=== PATIENT | female | born 1960 | race Two or more races ===

== ENCOUNTER → 2020-01-11 | Outpatient (CLI) | payer OTHER ==
--- NOTE | 2020-01-11 15:13 | Diagnostic Imaging Report ---
TECHNIQUE: 2 views of the thoracic spine, 5 views of the lumbar spine and 2 views of the sacrum HISTORY: ^[id number] ^[id number] ^THORACIC SPINE PAIN. COMPARISON: None. IMPRESSION: Straightening of the lumbar spine. No acute displaced fracture or dislocation. Severe L5-S1 disc space narrowing with mild osteophytosis. Probable associated facet arthropathy. Vascular calcifications. Signed by: Kash Yen MD on 01/11/2020 3:10 PM
== END ==
LOC: MAMMO 13:14
PROVIDERS: ATTEND Internal Medicine
DX: Z12.31 Encounter for screening mammogram for malignant neoplasm of breast (principal); M54.6 Pain in thoracic spine; M43.07 Spondylolysis, lumbosacral region
CPT/HCPCS: 72070; 72110; 72220; 77067

== ENCOUNTER → 2020-03-23 | Outpatient (CLI) | payer OTHER | LOC: MRI 13:11 | PROVIDERS: ATTEND Internal Medicine | DX: M43.07 Spondylolysis, lumbosacral region (principal) ==

== ENCOUNTER → 2022-06-05 | Outpatient (CLI) | payer OTHER | LOC: MAMMO 13:11 | PROVIDERS: ATTEND Internal Medicine | DX: Z12.31 Encounter for screening mammogram for malignant neoplasm of breast (principal); Z13.820 Encounter for screening for osteoporosis | CPT/HCPCS: 77067; 77080 ==